=== PATIENT | male | born 1955 | race Caucasian/White ===

== ENCOUNTER 2018-02-28 11:10 | Day surgery (SDC) | payer BC ==
[~2018-02-28 11:10] MED LIST: EPHEDrine SULFATE 50 MG/5 ML SYG
[2018-02-28 13:14] LABS: INR 0.92; PROTIME 12.4 Sec (11.9-14.9)
[2018-02-28] MEDS ORDERED: morphine 2 MG INJ IV (14:00)
[2018-02-28] MEDS ORDERED: CEFAZOLIN 2 GM/50 ML (PMX) 50 ML IVPB (14:00)
[2018-02-28] MEDS ORDERED: VANCOMYCIN 1 GM (PMX) 250 ML IVPB (14:00)
[2018-02-28] MEDS ORDERED: CEFAZOLIN 3 GM in DEXTROSE 5% 100 ML IVPB (14:00)
[2018-02-28] MEDS ORDERED: MIDAZOLAM 1 MG/ML 2 ML INJ (14:17)
[2018-02-28] MEDS ORDERED: ROCURONIUM 50 MG INJ ×2 (14:17→16:31)
[2018-02-28] MEDS ORDERED: FENTAnyl 50 MCG/ML VIAL (14:17)
[2018-02-28] MEDS ORDERED: SUCCINYLCHOLINE CHLORIDE 100 MG/5 ML SYG IV (14:17)
[2018-02-28] MEDS ORDERED: LIDOCAINE 2% (SDV) 5 ML INJ (14:17)
[2018-02-28] MEDS ORDERED: PROPOFOL 20 ML (14:17)
[2018-02-28] MEDS ORDERED: ROPIVACAINE 0.5 % 30 ML VIAL (14:20)
[2018-02-28] MEDS ORDERED: CEFAZOLIN 1 GM INJ (14:44)
[2018-02-28] MEDS ORDERED: FAMOTIDINE 20 MG INJ (14:46)
[2018-02-28] MEDS ORDERED: DEXAMETHASONE 4 MG/ML 1 ML INJ (14:46)
[2018-02-28] MEDS ORDERED: ONDANSETRON 4 MG INJ (14:46)
[2018-02-28] MEDS ORDERED: SUGAMMADEX SODIUM 200 MG/2 ML VIAL IV (16:56)
[2018-02-28] MEDS: NEOMYC/POLYMYX/BACIT 30 GM OINT (17:00)
[2018-02-28] MEDS ORDERED: HYDROmorphONE 2 MG/ML SYG (17:05)
[2018-02-28] MEDS ORDERED: HYDROmorphONE 1 MG/5 ML IV SYRINGE IV ×3 (18:00)
[2018-02-28] MEDS ORDERED: MEPERIDINE 25 MG INJ IV (18:00)
[2018-02-28] MEDS ORDERED: DIPHENHYDRAMINE 50 MG INJ IV (18:00)
[2018-02-28] MEDS ORDERED: PROCHLORPERAZINE 10 MG INJ IV (18:00)
[2018-02-28] MEDS ORDERED: FENTAnyl 50 MCG/ML VIAL IV ×3 (18:00)
[2018-02-28] MEDS ORDERED: ONDANSETRON 4 MG INJ IV (18:00)
[2018-02-28] MEDS ORDERED: OXYCODONE/ACETAMINOPHEN (5/325) TAB PO (18:00)
== END 2018-02-28 19:10 | disposition home or self-care (01) ==
LOC: SDS 11:10
DX: T84.84XA Pain due to internal orthopedic prosthetic devices, implants and grafts, initial encounter (principal); Y83.8 Other surgical procedures as the cause of abnormal reaction of the patient, or of later complication, without mention of misadventure at the time of the procedure; M20.21 Hallux rigidus, right foot
CPT/HCPCS: 20900; 73660; 82306; 85610; 85730; 88300